=== PATIENT | male | born 1955 | race Caucasian/White ===

== ENCOUNTER 2016-12-17 16:38 | Inpatient (IN) | payer OTHER ==
[~2016-12-17] VITALS: Ht 180.3 cm; Wt 142.1 kg
[~2016-12-17 16:38] MED LIST: RIVA15T PO; XARELTO20 MG PO
--- NOTE | 2016-12-17 16:57 | NUR ---
PER PT DX WITH DVT TO RT THIGH AT [facility] JUST NOW ON 81 MG ASA FOR CURRENT DVT IN L LEG
--- NOTE | 2016-12-17 16:59 | NUR ---
LABS IN COMPUTER FROM THIS AM AT DR TODD OFFICE
--- NOTE | 2016-12-17 17:33 | ED GENERAL ADULT ---
History of Present Illness General Chief Complaint: General Adult Stated Complaint: "I JUST GOT A DVT" Source: patient Exam Limitations: no limitations Vital Signs & Intake/Output Vital Signs & Intake/Output Vital Signs Date Time Temp Pulse Resp B/P Pulse O2 O2 Flow FiO2 Ox Delivery Rate 12/17 1932 97.0 61 18 116/63 97 Room Air 12/17 1818 Room Air 12/17 1657 97.9 65 20 132/80 97 Allergies Coded Allergies: NO KNOWN ALLERGIES (07/26/11) Reconcile Medications Aspirin (Ecotrin*) 81 MG TABLET. 1 TAB PO DAILY HEART/BLOOD (Reported) Triage Note: [facility] MG [facility]SA FOR CURRENT DVT IN L LEG Triage Nurses Notes Reviewed? yes Onset: Gradual Duration: getting worse Timing: recent history Severity: moderate Severity Numbers: 5 HPI: Patient is a 61-year-old male with a past medical history of DVT currently on 81 mg of aspirin who presents emergency room stating that 9 days ago patient WENT ON A trip to [facility] and began having right lower extremity swelling and pain that has persisted much patient return today complaining of worsening pain and swelling and has had a nine-day history of associated symptoms of dyspnea on exertion. Patient denies any fever chills chest pain arm pain and jaw pain nausea vomiting or hemoptysis (KASIA PRICE) Past History Travel History Traveled to [place] past 21 day No Medical History Any Pertinent Medical History? 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 No (KASIA PRICE) Review of Systems Review of Systems Constitutional: Reports: no symptoms. EENTM: Reports: no symptoms. Respiratory: Reports: see HPI, short of breath. Cardiovascular: Reports: see HPI, peripheral edema. GI: Reports: no symptoms. Genitourinary: Reports: no symptoms. Musculoskeletal: Reports: no symptoms. Skin: Reports: no symptoms. Neurological/Psychological: Reports: no symptoms. Hematologic/Endocrine: Reports: no symptoms. Immunologic/Allergic: Reports: no symptoms. All Other Systems: Reviewed and Negative (KASIA PRICE) Physical Exam Physical Exam General Appearance: no apparent distress, alert, comfortable Rectal: heme negative stool Comments: Well-developed well-nourished person in no acute distress HEENT: Normal EENT exam, extraocular motion intact, no nystagmus. Pupils equally round and reactive to light and accommodation. Nose is atraumatic. External auditory canal and Tympanic membranes clear. Pharynx normal. No swelling or edema. Neck: Supple, no lymphadenopathy, normal range of motion without pain or tenderness Back: Nontender, no CVA tenderness. Cardiovascular: Regular rate and rhythms no murmurs rubs or gallops, normal JVP Respiratory: Chest nontender. No respiratory distress.breath sounds clear to auscultation bilaterally Abdomen: Soft, nontender nondistended, no appreciable organomegaly. Normal bowel sounds. No ascites Extremity: No edema, no calf tenderness to palpation, normal and equal pulses. Right lower extremity noted circumferential below the knee swelling and mild point tenderness, pedal pulses intact dermatomes intact Capillary refill less than 2 seconds Neuro: Alert oriented x3, motor sensory normal, Skin: No appreciable rash on exposed skin, skin is warm and dry. Psych: Mood and affect is normal, memory and judgment is normal. Core Measures ACS in differential dx? Yes CVA/TIA Diagnosis: No Severe Sepsis Present: No Septic Shock Present: No (KASIA PRICE) Progress Differential Diagnoses I considered the following diagnoses in my evaluation of the patient: [PE, DVT, myocardial infarction, coagulopathy, factor V, ] Plan of Care: Orders Procedure Date/time Status Regular Diet 12/18 B Active Patient Data 12/18 1943 Active Add-on Test (ER Only) 12/17 1937 Active EKG 12/17 1930 Active OXYGEN SETUP (GEN) 12/17 1929 Active Saline Lock 12/17 1929 Active Misc Message 12/17 1929 Active ED Holding Orders 12/17 1929 Active Admit to inpatient 12/17 1929 Active Vital Signs 12/17 1929 Active Activity/Ambulation 12/17 1929 Active Code Status 12/17 1929 Active Intake & Output 12/17 1817 Active CBC WITHOUT DIFFERENTIAL 04/03 1813 Complete TROPONIN LEVEL 12/18 1811 Complete PARTIAL THROMBOPLASTIN TIME 12/18 1811 Complete PROTHROMBIN TIME 12/18 1811 Complete Add-on Test (ER Only) 12/17 1756 Active Laboratory Tests 12/17/16 193: CBC w Diff Cancelled, WBC Cancelled, RBC Cancelled, Hgb Cancelled, Hct Cancelled , MCV Cancelled, MCH Cancelled, RDW Cancelled, Plt Count Cancelled, MPV Cancelled, PUBS MCHC Cancelled 12/17/161812: Troponin I < 0.01, PT 11.2, INR 1.07, APTT 34, CBC w Diff NO MAN DIFF REQ, RBC 4.46 L, MCV 87.6, MCH 28.6, RDW 13.6, MPV 7.6, Gran % 54.2, Lymphocytes % 33.8, Monocytes % 7.1, Eosinophils % 4.4, Basophils % 0.5, Absolute Granulocytes 4.1, Absolute Lymphocytes 2.5, Absolute Monocytes 0.5, Absolute Eosinophils 0.3, Absolute Basophils 0, PUBS MCHC 32.7 L Patient currently is in no apparent distress, clear lungs to auscultation No respiratory distress, patient has positive right lower extremity DVT and pulmonary embolism which heparin will be administered. (LUIZ BATUISTA,KASIA) Diagnostic Imaging: Viewed by Me: CT Scan, Ultrasound. Radiology Impression: acute abnormality Initial ED EKG: SINUS RHYTHM NOTED AT 61 BPM Comments: PATIENT: THANH ADAMS PRESENT AGE: 61 PATIENT ACCOUNT NO: [id number] : 57 LOCATION: [facility] ORDERING PHYSICIAN: KASIA BAUTISTA SERVICE DATE: 12/17/16 EXAM TYPE: CAT - CTA CHEST-PULMONARY EMBOLISM EXAMINATION: CT ANGIOGRAM OF THE CHEST WITH AND WITHOUT CONTRAST (CT PULMONARY ANGIOGRAM FOR PE) CLINICAL INFORMATION: Positive deep venous thrombosis to rule out pulmonary embolism. COMPARISON: Chest x-ray 12/04/2016. TECHNIQUE: Prior to contrast administration, noncontrast localization images were obtained. Subsequently, multidetector volumetric imaging was performed from the thoracic inlet to below the diaphragms following the administration of 95 mL Optiray 320 intravenous contrast. No contrast reaction reported. Sagittal, coronal, and MIP oblique sagittal reformatted images were obtained on the CT workstation, uploaded to PACS, and reviewed. FINDINGS: There is a nonocclusive filling defect within the right lower lobar pulmonary artery extending into multiple right lower lobe segmental pulmonary arteries, one of which appears occluded. There is an occlusive pulmonary embolus within a segmental left lower lobar pulmonary arterial branch. There is no focal consolidation, pleural effusion, or pneumothorax. There is a 6.5 mm nodule within the lingula on image 39 of series 3. This is not entirely included on previous abdominal CT studies. There is no CT correlate to the 7 mm nodular opacity within the right upper lung on the 12/04/2016 chest x-ray. The thoracic aorta is normal in caliber. Azygos vein prominent in size. The heart is normal in size without evidence of a pericardial effusion. There is no mediastinal, hilar, or axillary adenopathy. Variant exophytic protrusion of the right thyroid lobe into the right tracheoesophageal groove. The partially visualized upper abdomen is unremarkable. No acute osseous abnormalities. There is diffuse idiopathic skeletal hyperostosis throughout the thoracic spine. IMPRESSION: - There are a few occlusive pulmonary emboli within right and left lower lobe segmental pulmonary arterial branches. There is also a nonocclusive pulmonary embolus within the right lower lobar pulmonary artery extending into several segmental arterial branches. There is no evidence of right heart strain. - There is a 6.5 mm nodule within the lingula on image 39 of series 3. This is not entirely included on previous abdominal CT studies. There is no CT correlate to the 7 mm nodular opacity within the right upper lung on the 12/04/2016 chest x-ray. Various management parameters for solitary pulmonary nodules are in the literature. According to the Fleischner Society, recommendations for pulmonary nodules are as follows: Nodule size > 6-8 mm in LOW RISK PATIENTS: Initial follow up CT at 6-12 months, then at 18-24 months if no change. Nodule size > 6-8 mm in HIGH RISK PATIENTS: Initial follow up CT at 3-6 months, then 9-12 months and 24 months if no change. Critical findings discussed with Dr. Clark at 7:30 PM on 12/17/2016. PATIENT: THANH ADAMS PRESENT AGE: 61 PATIENT ACCOUNT NO: [id number] : 57 LOCATION: [facility] ORDERING PHYSICIAN: MADDI CHAPIN MD SERVICE DATE: 12/17/16 EXAM TYPE: US - US-UNILATERAL VENOUS DOPPLER EXAMINATION: US TRIPLEX LOWER EXTREMITY, RIGHT CLINICAL INFORMATION: Right lower extremity swelling and discomfort. Recent travel and history of DVT. Assess for new DVT. COMPARISON: No prior right-sided studies are available for comparison TECHNIQUE: Color-flow triplex imaging with spectral analysis and compression Doppler were performed on the right lower extremity. FINDINGS: There is absent flow and loss of compressibility of the right tibioperoneal trunk through the femoral veins, consistent with a deep vein thrombosis. Flow is demonstrated in the calf veins. There are no focal fluid collections. IMPRESSION: 1. Abnormal triplex scan demonstrating deep vein thrombosis in the right lower extremity. 2. There are no focal fluid collections. 3. This critical result was discussed with Felice Stoddard M.D. by telephone on 12/17/2016 4:12 PM and it was ascertained that the content and urgency of the report was understood at the time of direct communication. The findings were discussed with Nicolette Mak NP at 4:15 PM 12/17/2016. (KASIA PRICE) Departure Departure Disposition: STILL A PATIENT Condition: Critical Clinical Impression Primary Impression: Pulmonary embolism Secondary Impressions: DVT (deep venous thrombosis) Referrals: MADDI CHAPIN MD (PCP/Family) Departure Forms: Customer Survey General Discharge Information Admission Note Spoke With: CARMELITA HICKMAN MD Documentation of Exam: Documentation of any treatments & extenuating circumstances including Concerns Regarding Discharge (functional status, medication knowledge or non-compliance, living conditions, etc.) that warrant an admission rather than observation: [ Discussed patient with Dr. ESPITIA who agrees with telemetry admission for concerns of DVT and PE. Patient required IV anticoagulation, vascular consultation, repeat labs and telemetry monitoring, outpatient treatment at this time would be medically harmful] (KASIA PRICE) PA/BUYERS' AGENT Co-Sign Statement Statement: ED Attending supervision documentation- [X] I saw and evaluated the patient. I have also reviewed all the pertinent lab results and diagnostic results. I agree with the findings and the plan of care as documented in the PA's/BUYERS' AGENT's documentation. [X] I have reviewed the ED Record and agree with the PA's/BUYERS' AGENT's documentation. [] Additions or exceptions (if any) to the PAs/BUYERS' AGENT's note and plan are summarized below: [] (CARMELITA HICKMAN MD) Critical Care Note Critical Care Note Critical Care Time: 30-74 min (LUIZ BAUTISTA,KASIA)
--- NOTE | 2016-12-17 18:01 | NUR ---
PT IN ROOM 4. SEEN BY PROVIDER
--- NOTE | 2016-12-17 18:12 | NUR ---
PT STATES HE HAS HX OF DVT IN LEFT LEG FROM TWO YEARS AGO. NO LONGER ON BLOOD THINNERS FOR THIS. ABOUT TWO WEEKS AGO DEVELOPED RIGHT LEG PAIN. SINCE THEM PT WENT ON VACATION AND PAIN WORSENED. UPON RETURN FROM TRIP PT WENT TO SEE AND DIAGNOSED WITH DVT IN RIGHT LEG.
--- NOTE | 2016-12-17 18:14 | NUR ---
IV PLACED FOR CTA SCAN. PT PLACED ON MONITOR AND PULSE OX. HEART RATE 80, O2 SAT 99% ON ROOM AIR. PT REPORTS THAT HE HAS BEEN HAVING SOME SOB. PT TAKEN TO CT SCAN
--- NOTE | 2016-12-17 18:15 | NUR ---
LABS DRAWN AND SENT BY THIS [facility], SST,
[2016-12-17] MEDS ORDERED: ASPIRIN EC81 M1 PO (18:33)
[2016-12-17 18:58] LABS: PT 11.2 SEC (9.4-12.5); PTT 34 SEC (25-37)
--- NOTE | 2016-12-17 18:58 | NUR ---
RETURNED FROM CTA SCAN
--- NOTE | 2016-12-17 19:31 | NUR ---
RESTING QUIETLY, WATCHING TV. WITHOUT COMPLAINTS. REMAINS IN NSR ON MONITOR
--- NOTE | 2016-12-17 19:37 | CT SCAN REPORT ---
EXAMINATION: CT ANGIOGRAM OF THE CHEST WITH AND WITHOUT CONTRAST (CT PULMONARY ANGIOGRAM FOR PE) CLINICAL INFORMATION: Positive deep venous thrombosis to rule out pulmonary embolism. COMPARISON: Chest x-ray 12/04/2016. TECHNIQUE: Prior to contrast administration, noncontrast localization images were obtained. Subsequently, multidetector volumetric imaging was performed from the thoracic inlet to below the diaphragms following the administration of 95 mL Optiray 320 intravenous contrast. No contrast reaction reported. Sagittal, coronal, and MIP oblique sagittal reformatted images were obtained on the CT workstation, uploaded to PACS, and reviewed. FINDINGS: There is a nonocclusive filling defect within the right lower lobar pulmonary artery extending into multiple right lower lobe segmental pulmonary arteries, one of which appears occluded. There is an occlusive pulmonary embolus within a segmental left lower lobar pulmonary arterial branch. There is no focal consolidation, pleural effusion, or pneumothorax. There is a 6.5 mm nodule within the lingula on image 39 of series 3. This is not entirely included on previous abdominal CT studies. There is no CT correlate to the 7 mm nodular opacity within the right upper lung on the 12/04/2016 chest x-ray. The thoracic aorta is normal in caliber. Azygos vein prominent in size. The heart is normal in size without evidence of a pericardial effusion. There is no mediastinal, hilar, or axillary adenopathy. Variant exophytic protrusion of the right thyroid lobe into the right tracheoesophageal groove. The partially visualized upper abdomen is unremarkable. No acute osseous abnormalities. There is diffuse idiopathic skeletal hyperostosis throughout the thoracic spine. IMPRESSION: - There are a few occlusive pulmonary emboli within right and left lower lobe segmental pulmonary arterial branches. There is also a nonocclusive pulmonary embolus within the right lower lobar pulmonary artery extending into several segmental arterial branches. There is no evidence of right heart strain. - There is a 6.5 mm nodule within the lingula on image 39 of series 3. This is not entirely included on previous abdominal CT studies. There is no CT correlate to the 7 mm nodular opacity within the right upper lung on the 12/04/2016 chest x-ray. Various management parameters for solitary pulmonary nodules are in the literature. According to the Fleischner Society, recommendations for pulmonary nodules are as follows: Nodule size > 6-8 mm in LOW RISK PATIENTS: Initial follow up CT at 6-12 months, then at 18-24 months if no change. Nodule size > 6-8 mm in HIGH RISK PATIENTS: Initial follow up CT at 3-6 months, then 9-12 months and 24 months if no change. Critical findings discussed with Dr. Clark at 7:30 PM on 12/17/2016.
[2016-12-17 19:49] LABS: ABSOLUTE BASOPHIL COUNT 0 /CUMM (0.0-0.2); ABSOLUTE EOSINOPHIL COUNT 0.3 /CUMM (0.0-0.7); ABSOLUTE GRANULOCYTE CT 4.1 /CUMM (1.4-6.5); ABSOLUTE LYMPH COUNT 2.5 /CUMM (1.2-3.4); ABSOLUTE MONOCYTE COUNT 0.5 /CUMM (0.10-0.60); BASOPHIL % 0.5 % (0.0-2.0); EOSINOPHIL % 4.4 % (0-5); GRANULOCYTE % 54.2 % (42.2-75.2); HEMATOCRIT 39.1 % (42-52); MEAN CORPUSCULAR HGB 28.6 PG (27.0-31.0); MEAN CORPUSCULAR HGB CONC 32.7 G/DL (33.0-37.0); MEAN CORPUSCULAR VOLUME 87.6 FL (80.0-94.0); MEAN PLATELET VOLUME 7.6 FL (7.4-10.4); PLATELET COUNT 355 /CUMM (130-400); RBC DISTRIBUTION WIDTH 13.6 % (11.5-14.5); RED BLOOD CELL CT 4.46 /CUMM (4.70-6.10); WHITE BLOOD CELL COUNT 7.5 /CUMM (4.8-10.8)
--- NOTE | 2016-12-17 20:07 | NUR ---
HEPARIN DRIP STARTED AT 26ML/HR
--- NOTE | 2016-12-17 20:24 | History & Physical ---
JERMAIN WILDE,LES 12/17/162022: General Information and HPI MD Statement: I have seen and personally examined THANH ADAMS and documented this H&P. The patient is a 61 year old M who presented with a patient stated chief complaint of [right leg DVT]. Source of Information: patient Exam Limitations: no limitations History of Present Illness: Patient is a 61-year-old gentleman with PMH of HLD, left lower extremity DVT ( 2014), bladder tumor (1 year ago, s/p resection), osteoarthritis, left knee Rosales's cyst, umbilical hernia (5 years ago, S/P surgical repair), who came to the ED after having almost a week of right lower extremity pain and swelling. Patient reports that about a month ago he slipped and pulled a muscle and since then he has been having discomfort on the right lower leg, he did not follow up with any doctor. Since about a week ago his upper thigh has been painful which has been progressively worsening and is also having a feeling of tightness in the groin. Since a few days ago he has also noticed swelling in the right lower leg with tenderness and erythema. Patient went to see his PCP and a Doppler ultrasound was performed today which was reported positive for DVT in the right leg and he was sent to the ED. Patient denies shortness of breath, no chest pain, no palpitation, reports fatigue, reports having fevers and night sweats recently. denies poor appetite, reports a recent weight loss of about 5 pounds as he is trying to eat less and lose weight. However overall he has gained a lot of weight since he had a umbilical hernia 5 years ago, he states that he is trying to be active but it is not working and is planning for bariatric surgery. He also has a sedentary life style and sits behind the chair for at least 4-5 hours a day nonstop. He also had a recent travel to [facility] before onset of his symptoms a week ago. Patient denies dizziness, but reports an episode vertigo 5 weeks ago for which his PCP started him on meclizine. Patient also reports a recent episode of coughing and sneezing, he was diagnosed with pneumonia 2-3 weeks ago and received 2 courses of antibiotics Ceftin 500 mg twice a day. Patient's history is also significant for a bladder tumor that was removed in November 2015, patient was seen by Dr. Khan, pathology with results reported low-grade carcinoma. Patient did not require chemotherapy at that time. He also has done colonoscopy last year and has been reportedly negative Allergies/Medications Allergies: Coded Allergies: NO KNOWN ALLERGIES (07/26/11) Home Med list Apixaban (Eliquis) 5 MG TABLET 1 TAB PO BID clots Please take 2 tablets, in the am and in the evening for 1 week (12/18/2016 -12/24/2016) then take 1 tab in the AM & 1 tab in the evening until you see Dr. Negron. Atorvastatin Calcium 40 MG TABLET 1 TAB PO DAILY high lipids Oxycodone HCl/Acetaminophen (Percocet 5-325 MG Tablet) 5 MG-325 MG TABLET 2 TAB PO Q6P PRN PAIN SCALE 7-10 (SEVERE) Past History Travel History Traveled to [place] past 21 day No Medical History Neurological: NONE EENT: NONE Cardiovascular: NONE, hypercholesterolemia Respiratory: NONE Gastrointestinal: NONE Hepatic: NONE Renal: NONE Musculoskeletal: NONE Psychiatric: NONE Endocrine: NONE Blood Disorders: DVT Cancer(s): NONE TUBE PUSHER/Reproductive: NONE History of MRSA: No History of VRE: No History of CDIFF: No Surgical History Surgical History: she placed for abdominal hernia secondary to diastases rectus Past Family/Social History Family History Relations & Conditions if any MOTHER *No pertinent family history FATHER FHx: alcoholism Psychosocial History Services at Home: None Smoking Status: Never Smoked ETOH Use: occasional use Illicit Drug Use: denies illicit drug use Functional Ability ADLs Independent: dressing, eating, toileting, bathing. Ambulation: independent Review of Systems Review of Systems Constitutional: Denies: chills, fever, weakness. EENTM: Reports: no symptoms. Cardiovascular: Denies: chest pain, palpitations, peripheral edema. Respiratory: Denies: cough, sputum production. GI: Denies: abdominal pain, changes in stool. Genitourinary: Reports: no symptoms. Musculoskeletal: Reports: no symptoms. Skin: Reports: no symptoms. Neurological/Psychological: Reports: no symptoms. Hematologic/Endocrine: Reports: no symptoms. Immunologic/Allergic: Reports: no symptoms. Exam & Diagnostic Data Last 24 Hrs of Vital Signs/I&O Vital Signs Date Time Temp Pulse Resp B/P Pulse O2 O2 Flow FiO2 Ox Delivery Rate 12/17 1932 97.0 61 18 116/63 97 Room Air 04/03 1818 Room Air 12/17 1657 97.9 65 20 132/80 97 Physical Exam General Appearance Alert, Oriented X3, Cooperative, No Acute Distress Skin No Significant Lesion HEENT Atraumatic, EOMI Neck Supple, No JVD Cardiovascular Regular Rate, Normal S1, Normal S2, No Murmurs Lungs Clear to Auscultation, Normal Air Movement Abdomen Soft, No Tenderness Neurological Normal Speech, Strength at 5/5 X4 Ext, Normal Tone, Cranial Nerves 3-12 NL Extremities Normal Pulses, there is tenderness and erythema on the right lower [place]. The right leg appears slightly swollen compared to the left leg. Vascular Pulses Symmetrical Last 24 Hrs of Labs/Tarun: Laboratory Tests 12/17/161930: CBC w Diff Cancelled, WBC Cancelled, RBC Cancelled, Hgb Cancelled, Hct Cancelled , MCV Cancelled, MCH Cancelled, RDW Cancelled, Plt Count Cancelled, MPV Cancelled, PUBS MCHC Cancelled 12/17/161812: Troponin I < 0.01, PT 11.2, INR 1.07, APTT 34, CBC w Diff NO MAN DIFF REQ, RBC 4.46 L, MCV 87.6, MCH 28.6, RDW 13.6, MPV 7.6, Gran % 54.2, Lymphocytes % 33.8, Monocytes % 7.1, Eosinophils % 4.4, Basophils % 0.5, Absolute Granulocytes 4.1, Absolute Lymphocytes 2.5, Absolute Monocytes 0.5, Absolute Eosinophils 0.3, Absolute Basophils 0, PUBS MCHC 32.7 L Diagnostic Data CXR Results SERVICE DATE: 12/17/16 EXAM TYPE: CAT - CTA CHEST-PULMONARY EMBOLISM EXAMINATION: CT ANGIOGRAM OF THE CHEST WITH AND WITHOUT CONTRAST (CT PULMONARY ANGIOGRAM FOR PE) CLINICAL INFORMATION: Positive deep venous thrombosis to rule out pulmonary embolism. COMPARISON: Chest x-ray 12/04/2016. TECHNIQUE: Prior to contrast administration, noncontrast localization images were obtained. Subsequently, multidetector volumetric imaging was performed from the thoracic inlet to below the diaphragms following the administration of 95 mL Optiray 320 intravenous contrast. No contrast reaction reported. Sagittal, coronal, and MIP oblique sagittal reformatted images were obtained on the CT workstation, uploaded to PACS, and reviewed. FINDINGS: There is a nonocclusive filling defect within the right lower lobar pulmonary artery extending into multiple right lower lobe segmental pulmonary arteries, one of which appears occluded. There is an occlusive pulmonary embolus within a segmental left lower lobar pulmonary arterial branch. There is no focal consolidation, pleural effusion, or pneumothorax. There is a 6.5 mm nodule within the lingula on image 39 of series 3. This is not entirely included on previous abdominal CT studies. There is no CT correlate to the 7 mm nodular opacity within the right upper lung on the 12/04/2016 chest x-ray. The thoracic aorta is normal in caliber. Azygos vein prominent in size. The heart is normal in size without evidence of a pericardial effusion. There is no mediastinal, hilar, or axillary adenopathy. Variant exophytic protrusion of the right thyroid lobe into the right tracheoesophageal groove. The partially visualized upper abdomen is unremarkable. No acute osseous abnormalities. There is diffuse idiopathic skeletal hyperostosis throughout the thoracic spine. IMPRESSION: - There are a few occlusive pulmonary emboli within right and left lower lobe segmental pulmonary arterial branches. There is also a nonocclusive pulmonary embolus within the right lower lobar pulmonary artery extending into several segmental arterial branches. There is no evidence of right heart strain. - There is a 6.5 mm nodule within the lingula on image 39 of series 3. This is not entirely included on previous abdominal CT studies. There is no CT correlate to the 7 mm nodular opacity within the right upper lung on the 12/04/2016 chest x-ray. Various management parameters for solitary pulmonary nodules are in the literature. According to the Fleischner Society, recommendations for pulmonary nodules are as follows: Nodule size > 6-8 mm in LOW RISK PATIENTS: Initial follow up CT at 6-12 months, then at 18-24 months if no change. Nodule size > 6-8 mm in HIGH RISK PATIENTS: Initial follow up CT at 3-6 months, then 9-12 months and 24 months if no change. Critical findings discussed with Dr. Clark at 7:30 PM on 12/17/2016. DICTATED BY: CARLA OLMEDO MD DATE/TIME DICTATED:12/17/161918 IS ANALYST:PADMA DATE/TIME TRANSCRIBED:12/17/161918 SERVICE DATE: 12/18/16- EXAM TYPE: US - US-UNILATERAL VENOUS DOPPLER EXAMINATION: US TRIPLEX LOWER EXTREMITY, LEFT CLINICAL INFORMATION: History of DVT on the left, now also on the right. Patient has pulmonary emboli. COMPARISON: Right leg DVT study 12/17/2016 and left leg study dated 06/07/2015. TECHNIQUE: Color-flow triplex imaging with spectral analysis and compression Doppler were performed on the left lower extremity. FINDINGS: There is occlusive thrombus present in the left popliteal vein with nonocclusive thrombus present in the femoral vein above this up to its midportion. Thrombus is also present in the peroneal vein. It should be noted at the time of the patient's 2014 study mentioned above, noncompressible occlusive thrombus was present in the popliteal vein extending up into the femoral vein. Once again seen is a Rosales's cyst measuring 6.7 x 1.7 x 4.2 cm. IMPRESSION: Evidence of occlusive DVT in the popliteal vein. Similar appearances were present at the time of the prior study. The thrombus in the femoral vein is no longer occlusive. Given the appearances previously, it is difficult to ascertain whether these findings are chronic or acute as there are no studies which show resolution of the previously demonstrated 2014 findings. This critical result was discussed with Dr. Stephen Addison at 10:15 a.m. immediately after the exam and it was ascertained that the content and urgency of the report was understood at the time of direct communication. DICTATED BY: KASSANDRA GARRIDO MD DATE/TIME DICTATED:12/18/161020 IS ANALYST:PADMA DATE/TIME TRANSCRIBED:12/18/161020 Assessment/Plan Assessment: Patient is a 61-year-old gentleman with PMH of HLD, left lower extremity DVT ( 2014), bladder tumor (1 year ago, s/p resection), osteoarthritis, left knee Rosales's cyst, umbilical hernia (5 years ago, S/P surgical repair), came to the ED due to right leg pain and swelling and a Doppler ultrasound that showed DVT. Workup in the ED also has revealed PE and he is a started on IV heparin. Patient is admitted to telemetry floor for closer monitoring. Problem list and plan: Right leg DVT and PE Denies shortness of breath, chest pain or palpitations. EKG unremarkable, troponin negative. Patient has a history of DVT diagnosed in April 2015, follows up with vascular surgery, etiology of the DVT as he says was unknown. He was on warfarin for 6 months and was switched to aspirin by Dr. Lehman afterwards. Patient has sedantary life style, has obesity, recent travel by [facility] and thus immobility for long hours, also significant history of bladder cancer, removed by Dr. 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 * Vital signs every shift * Repeat troponin and EKG * Continue IV heparin, can be switched to Eliquis or Xarelto in am * O2 supplementation as needed * Hematology consult in a.m. * Vascular surgery consult in a.m. * Echocardiogram * CBC in am Hisotory of TCC of the bladder In November 2015. 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 Denies any urinary symptoms * Urology followup outaptient for possible need for cystoscopy Lung nodule Accidental finding in chest CT: 6.5 mm nodule within the lingula on image 39 of series 3. This is not entirely included on previous abdominal CT studies. There is no CT correlate to the 7 mm nodular opacity within the right upper lung on the 12/04/2016 chest x-ray. Denies smoking. * patient should follow up with pulmonary outpatient HLD Currently not on medication. Has stopped Lipitor due to side effects. * Lipid panel Heart healthy diet Mild pain pathways Full code As Ranked By This Provider Problem List: 1. Pulmonary embolism 2. Deep vein thrombosis (DVT) 3. Bladder tumor 4. Umbilical hernia Core Measures/Miscellaneous Acute Coronary Syndrome ACS Diagnosis: No Cerebrovascular Accident CVA/TIA Diagnosis: No Congestive Heart Failure CHF Diagnosis: No Venous Thromboembolism VTE Risk Factors: Acute medical illness, Age > 40, Cancer/chemo/oth therapy, Obesity, Previous VTE No [facility] VTE prophylaxis d/t: No contraindications No VTE Pharm Prophylaxis d/t: No contraindications VTE Diagnosis: Yes VTE Type: Deep Venous Thrombosis (also has PE) VTE Confirmed by (Test): DUPLEX SCAN LOWER EXT (as well as CTA) Severe Sepsis Severe Sepsis Present: No Septic Shock Septic Shock Present: No Miscellaneous Documentation Attending Case Discussed With: CYRIL ESPITIA MDEmelina Primary Care Physician: MADDI CHAPIN MD Patient sees these Specialists Dr. Lehman Level of Patient Care: Telemetry LANRE SHIPLEY 12/17/16 2329: Exam & Diagnostic Data Diagnostic Data Other Results EXAM TYPE: CAT - CTA CHEST-PULMONARY EMBOLISM IMPRESSION: - There are a few occlusive pulmonary emboli within right and left lower lobe segmental pulmonary arterial branches. There is also a nonocclusive pulmonary embolus within the right lower lobar pulmonary artery extending into several segmental arterial branches. There is no evidence of right heart strain. - There is a 6.5 mm nodule within the lingula on image 39 of series 3. This is not entirely included on previous abdominal CT studies. There is no CT correlate to the 7 mm nodular opacity within the right upper lung on the 12/04/2016 chest x-ray. Various management parameters for solitary pulmonary nodules are in the literature. According to the Fleischner Society, recommendations for pulmonary nodules are as follows: Resident Review Statement Resident Statement: examined this patient, discussed with administration intern, agreed with administration intern, reviewed EMR data (avail), reviewed images, amended to note Other Findings: This is 61-year-old man the past medical history of hyperlipidemia not in current medication, history of lower extremity DVT that was on the left side 2014, patient has history of bladder tumor(urethral carcinoma, low-grade) that was resected one year ago, Osteoarthritis, left knee Rosales's cyst. Presented to the emergency department after been referred by his primary care doctor due to positive Doppler ultrasound study of the right lower extremity showing a new DVT. The study was done due to the patient Complaining of worsening pain and swelling on his right lower extremity with recent history of travel 1 week ago. Patient reported that he was taken off the warfarin after treatment for a total of 6 month his vascular surgeon and he was placed on baby aspirin. also he reports an episode vertigo 5 weeks ago for that was treated with meclizine by his PCP. Patient also reports a recent diagnosed with pneumonia 2-3 weeks ago and received 2 courses of antibiotics Ceftin 500 mg twice a day. Patient denies shortness of breath, no chest pain, no palpitation, reports being fatigued. Physical examination, lab and imaging as above. Assessment: -Bilateral pulmonary embolism/New right lower extremity DVT: Giving the patient previous history of DVT, and the recent travel history and the history of the bladder cancer. Despite that the patient would need to workup for any underlying coagulopathy. Patient will need to be on chronic anticoagulation and he will need further workup for any underlying cardiac strain. -Lung nodules: Patient will need outpatient workup for the lung nodule. The lung nodule was seen on chest x-ray that was done by the patient primary care doctor on November 2016, he would need to follow-up with his PCP regarding this. Plan: -Admit patient to telemetry floor -Vitals every shift, I and O's -Continue the patient on heparin drip -Guaiac all stools -Patient will need to be placed on anticoagulation -Echocardiogram, 1 set of troponin and EKG -Doppler ultrasound for the left lower extremity for assessment -Vascular consultation in a.m -Hematology consultation in a.m -Heart healthy diet -Pain pathway -DVT prophylaxis on heparin drip -Full code OMKAR WILDE, [facility] 12/18/16 0448: Attending MD Review Statement Attending Statement Attending MD Statement: examined this patient, discuss w/resident/PA/TENT FINISHER, agreed w/resident/PA/TENT FINISHER, discussed with family Attending Assessment/Plan: 61 yo morbidly obese M with h/o HLD, OA, left LE DVT (2014) was on xarelto, now on aspirin with regular follow up with Dr. Lehman, is now here with right lower extremity DVT and multiple segmental PE. He c/o occasional lightheadedness and more recently exertional dyspnea over the past 1 week. 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 Since his umbilical hernia surgery 4 yrs ago and knee OA he has been less active causing him to gain weight. About 5 weeks ago, he developed right groin pain after a long walk, which got progressively worse to the point that he could not walk with associated swelling of the right leg. He saw Dr. Chapin today who advised RLE doppler which came back positive for DVT. He reports recent travel to [place] (4-5 hour flight), he returned 1 day prior. Of note, he has a h/o transitional cell CA of bladder s/p TURBT (2015 ) not requiring chemotherapy. Last colonoscopy (2015): rectal hyperplastic polyp. His previous DVT was attributed to sedentary lifestyle, he did not see a forging roll operator for underlying coagulopathy. Family h/o maternal grandfather with colon cancer. No h/o clotting disorders. VSS. Labs: trop neg. CTA: few occlusive PE within right and left lower lobe segmental pulmonary artery branches, nonocclusive PE within right lower lobar artery, no right heart strain. Lung nodule+. Doppler: right tibioperoneal trunk to femoral vein DVT. EKG: SR. 1. Recurrent DVT (now in RLE) and bilateral segmental PE. Tele admit, serial EKG and troponin to rule out ACS, obtain Echo to assess for right heart strain, guaiac all stools, initiate IV heparin with a plan to transition to eliquis in AM. He has multiple risk factors and will need chronic anticoagulation. Obtain hematology and vascular consult. Obtain LLE doppler to assess previous DVT burden. 2. Lung nodule. Outpatient Pulm follow up. 3. Morbidly obese. He is being worked up for Bariatric surgery. DVT ppx IV heparin. Full code.
--- NOTE | 2016-12-17 21:13 | NUR ---
PT TO GO TO ROOM 171-1
--- NOTE | 2016-12-17 21:21 | NUR ---
REPORT CALLED TO SAMUEL ON TELE UNIT
--- NOTE | 2016-12-17 21:31 | Admission Certification ---
Admission Certification Certification Statement - As attending physician, I certify that at the time of - admission, based on clinical presentation, severity of - symptoms, need for further diagnostic testing and - therapeutic interventions, and risk of adverse outcomes - without in-hospital treatment, in my clinical assessment, - this patient requires an acute hospital stay for a minimum - of two nights or longer. I have also considered psychsocial - factors such as support system, advanced age, financial - issues, cognitive issues, and failed out-patient treatments, - past re-admission history, safety of patient, and lack of - compliance as applicable. Specific rationale supporting this admission is: Recurrent DVT with multiple segmental PE requiring inpatient admission for anticoagulation, Vascular and Hematology consultation.
[2016-12-17 23:31] VITALS: BP 130/70
[2016-12-18 02:21] LABS: PTT 47 SEC (25-37)
--- NOTE | 2016-12-18 07:27 | Cons- Hematology ---
General Information and HPI Consulting Request Date of Consult: 12/18/16 Requested By: OMKAR WILDE,DOMENICO History of Present Illness: 61-year-old gentleman now admitted with right DVT and pulmonary emboli. The patient several weeks ago "fell on the ice"subsequent increasing pain in the right leg. The pain intensified and the patient had questionable shortness of breath and sought medical attention. Currently he has no significant shortness of breath cough chest pain or hemoptysis. 2 years ago patient had what appeared to be a non-provoked DVT of the left lower extremity. He was placed on anticoagulation, warfarin, for 6 months. Patient also has a history of bladder cancer status post cystoscopic resection. Patient last saw his urologist 6 months ago.. Family history is negative for thrombophilia and it should be noted the patient did take a plane trip in the recent timeframe Allergies/Medications Allergies: Coded Allergies: NO KNOWN ALLERGIES (07/26/11) Home Med List: Aspirin (Ecotrin*) 81 MG TABLET.DR 1 TAB PO DAILY HEART/BLOOD (Reported) Current Medications: Current Medications Sig/Joce Start time Last Medication Dose Route Stop Time Status Admin Acetaminophen 500 MG Q6P PRN 12/17 2144 AC PO Heparin Sodium 5,701 UNIT BOLUS ONE 12/18 244 DC 12/18 (Porcine) IV 12/18 Heparin Sodium 0 .STK-MED ONE 12/17 1954 DC (Porcine) .ROUTE Heparin Sodium 5,000 UNIT ONCE ONE 12/17 1944 DC 12/17 (Porcine) IV 12/17 Heparin Sodium 25,000 UNIT Q24H 12/17 1944 AC 12/17 (Porcine) IV 2005 Sodium Chloride 500 ML Ibuprofen 600 MG Q6P PRN 12/17 2144 AC PO Oxycodone/ 2 TAB Q6P PRN 12/17 214 AC Acetaminophen PO Review of Systems Review of Systems: Patient denies significant headaches or his recently treated for vertigo is now resolved. Agent denies nausea vomiting diarrhea or GI blood loss. Patient denies dysuria or hematuria. She denies bone aches or focal neurologic deficit. 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 Home Services at Home: None Smoking Status: Never Smoked ETOH Use: occasional use Illicit Drug Use: denies illicit drug use Functional Ability ADLs Independent: dressing, eating, toileting, bathing. Ambulation: independent Exam & Diagnostic Data Vital Signs and I&O Vital Signs Date Time Temp Pulse Resp B/P Pulse O2 O2 Flow FiO2 Ox Delivery Rate 12/18 0000 Room Air 12/17 2331 98.2 62 18 130/70 96 Room Air 12/17 1932 97.0 61 18 116/63 97 Room Air 12/17 1818 Room Air 12/17 1657 97.9 65 20 132/80 97 Intake & Output 12/18 0800 12/18 0000 12/17 1600 Intake Total 303.6 52 Output Total Balance 303.6 52 Intake, IV 253.6 52 Intake, Oral 50 Patient 313 lb Weight Gen.: in NAD ENT: Sclera anicteric Chest: Normal respiratory effort, decreased breath sounds Cor: RRR, no extra sounds Abdomen: Soft, bowel sounds present, no tenderness, no rebound Extremities: Without clubbing, cyanosis, right lower extremity edematous Neurology: Alert and oriented 3, no gross deficit Skin: No rashes Last 48 Hours of Lab Results: Laboratory Tests 12/18 12/18 12/18 12/17 0600 0200 0100 1931 Chemistry Sodium Pending Potassium Pending Chloride Pending Carbon Dioxide Pending Anion Gap Pending BUN Pending Creatinine Pending BUN/Creatinine Ratio Pending Troponin I (<0.11 ng/ml) < 0.01 Coagulation APTT (25 - 37 SEC) 47 H Hematology CBC w Diff Cancelled WBC Cancelled RBC Cancelled Hgb Cancelled Hct Cancelled MCV Cancelled MCH Cancelled RDW Cancelled Plt Count Cancelled MPV Cancelled PUBS MCHC Cancelled 12/17 1812 Chemistry Troponin I (<0.11 ng/ml) < 0.01 Coagulation PT (9.4 - 12.5 SEC) 11.2 INR (0.90 - 1.17) 1.07 APTT (25 - 37 SEC) 34 Hematology CBC w Diff NO MAN DIFF REQ WBC (4.8 - 10.8 /CUMM) 7.5 RBC (4.70 - 6.10 /CUMM) 4.46 L Hgb (14.0 - 18.0 G/DL) 12.8 L Hct (42 - 52 %) 39.1 L MCV (80.0 - 94.0 FL) 87.6 MCH (27.0 - 31.0 PG) 28.6 RDW (11.5 - 14.5 %) 13.6 Plt Count (130 - 400 /CUMM) 355 MPV (7.4 - 10.4 FL) 7.6 Gran % (42.2 - 75.2 %) 54.2 Lymphocytes % (20.5 - 51.1 %) 33.8 Monocytes % (1.7 - 9.3 %) 7.1 Eosinophils % (0 - 5 %) 4.4 Basophils % (0.0 - 2.0 %) 0.5 Absolute Granulocytes (1.4 - 6.5 /CUMM) 4.1 Absolute Lymphocytes (1.2 - 3.4 /CUMM) 2.5 Absolute Monocytes (0.10 - 0.60 /CUMM) 0.5 Absolute Eosinophils (0.0 - 0.7 /CUMM) 0.3 Absolute Basophils (0.0 - 0.2 /CUMM) 0 PUBS MCHC (33.0 - 37.0 G/DL) 32.7 L Imaging/Other Studies: VTY-unaov-halramfmm emboli Right lower extremity Doppler-DVT Left lower extremity Doppler= ordered Assessment/Plan Assessment: Recurrent DVT(contralateral leg) and pulmonary embolism. The patient has been on a airline flight and suffered trauma to the affected limb. Of concern is his prior history of bladder cancer. Also of importance is the lack of familial tendency of thromboembolism. At this point it is unclear as to the etiology of his current thromboembolic phenomena.. Recommend 1. IV heparin was can version to a newer oral anticoagulant 2. In view of the prior bladder cancer, CAT scan abdomen and pelvis/chest x-ray 3. Assuming the patient is not going to be placed on warfarin, laboratory testing for thrombophilia can be accomplished as an outpatient. 4. Vascular surgery to see patient I have discussed this in full with the patient Recommendations: .. Consult Acknowledgment - Thank you for your consult request.
[2016-12-18 08:00] VITALS: BP 132/60
--- NOTE | 2016-12-18 08:23 | PN- Housestaff ---
Subjective Follow-up For: DVT/pulmonary embolus Complaints: pain and swelling in right lower limb, dry cough Tele-Events Since Last Visit: Normal sinus rhythm, heart rate between 59-69, no any overnight event Subjective: Patient is seen and examined at the bedside. He was complaining of swelling and tenderness on the right lower leg. He was also complaining of dry cough, but she is having since last 1 month and was treated for that by tablet Ceftin for around 10 days Review of Systems Constitutional: Denies: fever, malaise, weakness. Cardiovascular: Reports: edema, peripheral edema. Denies: chest pain, orthopena, palpitations. Respiratory: Reports: cough. Denies: hemoptysis, orthopnea, short of breath, sputum production, stridor, wheezing. Gastrointestinal: Denies: abdominal pain, bloating, constipation, diarrhea. Genitourinary: Denies: no symptoms. Skin: Reports: change in skin color, erythema. Neurological/Psychological: Denies: anxiety. Objective Last 24 Hrs of Vital Signs/I&O Vital Signs Date Time Temp Pulse Resp B/P Pulse O2 O2 Flow FiO2 Ox Delivery Rate 12/18 0800 98.0 62 20 132/60 97 Room Air 12/18 0000 Room Air 12/17 2331 98.2 62 18 130/70 96 Room Air 12/17 1932 97.0 61 18 116/63 97 Room Air 12/17 1818 Room Air 12/17 1657 97.9 65 20 132/80 97 Intake & Output 12/18 1600 12/18 0800 12/18 0000 Intake Total 303.6 52 Output Total Balance 303.6 52 Intake, IV 253.6 52 Intake, Oral 50 Patient 142.145 kg Weight Physical Exam General Appearance: Alert, Oriented X3, Cooperative, No Acute Distress Skin: there is redness, erythema and tenderness of right lower extremity extending from ankle joint to the knee. Cardiovascular: Normal S1, Normal S2, No Murmurs Lungs: Clear to Auscultation, decreased air entry on right lower lobe of the lung Abdomen: Soft, No Tenderness, distended Neurological: Normal Speech Extremities: No Clubbing, No Cyanosis, right lower extremity edema, erythema, tenderness extending from the ankle to the knee joint Vascular: Normal Pulses, Pulses Symmetrical Current Medications: Current Medications Sig/Joce Start time Last Medication Dose Route Stop Time Status Admin Acetaminophen 500 MG Q6P PRN 12/17 2144 AC PO Apixaban 10 MG BID 12/18 1000 DC PO 12/24 2201 Heparin Sodium 25,000 UNIT Q24H 12/18 1115 AC (Porcine) IV Sodium Chloride 500 ML Heparin Sodium 5,701 UNIT BOLUS ONE 12/18 1100 CAN (Porcine) IV 12/18 1101 Heparin Sodium 5,701 UNIT BOLUS ONE 12/18 0245 DC 12/18 (Porcine) IV 12/18 024 0245 Heparin Sodium 0 .STK-MED ONE 12/17 1954 DC (Porcine) .ROUTE Heparin Sodium 5,000 UNIT ONCE ONE 12/17 1944 DC 12/17 (Porcine) IV 12/17 Heparin Sodium 25,000 UNIT Q24H 12/17 1944 DC 12/17 (Porcine) IV 2005 Sodium Chloride 500 ML Ibuprofen 600 MG Q6P PRN 12/17 2144 DC PO Oxycodone/ 2 TAB Q6P PRN 12/17 2144 AC Acetaminophen PO Last 24 Hrs of Lab/Tarun Results Last 24 Hrs of Labs/Mics: Laboratory Tests 12/18/16 0915: APTT 55 H 12/18/16 0822: CBC w Diff NO MAN DIFF REQ, RBC 4.37 L, MCV 87.4, MCH 29.3, RDW 13.0, MPV 7.7, Gran % 59.9, Lymphocytes % 30.6, Monocytes % 5.1, Eosinophils % 3.7, Basophils % 0.7, Absolute Granulocytes 4.2, Absolute Lymphocytes 2.2, Absolute Monocytes 0.4 , Absolute Eosinophils 0.3, Absolute Basophils 0, PUBS MCHC 33.5 12/18/16 0600: Anion Gap 7, Estimated GFR > 60, BUN/Creatinine Ratio 16.7 12/18/16 0530: Urine Color STRAW, Urine Clarity CLEAR, Urine pH 6.5, Ur Specific [place] 1.010, Urine Protein NEG, Urine Ketones NEG, Urine Nitrite NEG, Urine Bilirubin NEG, Urine Urobilinogen 0.2, Ur Leukocyte Esterase NEG, Ur Microscopic EXAM NOT REQUIRED, Urine Hemoglobin NEG, Urine Glucose NEG 12/18/16 0200: APTT 47 H 12/18/16 0100: Troponin I < 0.01 12/17/16 1931: CBC w Diff Cancelled, WBC Cancelled, RBC Cancelled, Hgb Cancelled, Hct Cancelled , MCV Cancelled, MCH Cancelled, RDW Cancelled, Plt Count Cancelled, MPV Cancelled, PUBS MCHC Cancelled 12/17/163: Troponin I < 0.01, PT 11.2, INR 1.07, APTT 34, CBC w Diff NO MAN DIFF REQ, RBC 4.46 L, MCV 87.6, MCH 28.6, RDW 13.6, MPV 7.6, Gran % 54.2, Lymphocytes % 33.8, Monocytes % 7.1, Eosinophils % 4.4, Basophils % 0.5, Absolute Granulocytes 4.1, Absolute Lymphocytes 2.5, Absolute Monocytes 0.5, Absolute Eosinophils 0.3, Absolute Basophils 0, PUBS MCHC 32.7 L Assessment/Plan Assessment: Patient is a 61-year-old gentleman with PMH of HLD, left lower extremity DVT ( 2014), bladder tumor (1 year ago, s/p resection), osteoarthritis, left knee Rosales's cyst, umbilical hernia (5 years ago, S/P surgical repair), who came to the ED after having almost a week of right lower extremity pain and swelling. Plan - Right lower extremity DVT, bilateral pulmonary embolus with history of left lower extremity DVT and bladder cancer * Patient having history of DVT in 2014 and was treated by warfarin for 6 months followed by aspirin by Dr. Maxwell. * His risk factors are obesity, immobilization, recent long flight, history of bladder cancer, * We started him on heparin drip * We took consult from Dr. Maxwell, he told that if the patient have involvement of femoral artery, then patient may need thrombolysis. Otherwise, he can be treated with Eliquis as an outpatient. We discussed about the patient in evening and he advised that he can go home on Eliquis as he is not having any involvement of femoral artery. * Discussed with Dr. Mckinney, over the phone, patient can be evaluated as an outpatient for further workup for thrombophilia Hyperlipidemia - * Cholesterol 219, LDL 156, on 11/17/2016 * Started patient on tablet atorvastatin 40 mgs OD, HS * We advised him for low-fat diet along with weight loss exercise after he Improved Diet -heart healthy diet DVT prophylaxis-Eliquis CODE STATUS full code Problem List: 1. Deep vein thrombosis (DVT) 2. Pulmonary embolism 3. Bladder tumor 4. Umbilical hernia Pain Ratin Pain Location: Bilateral lower extremity Pain Goal: Remain pain free Pain Plan: [id number] avoid NSAIDs Tomorrow's Labs & Rationales: Not required as patient is going home DVT/Prophylaxis: pharmacological
[2016-12-18 09:22] LABS: ABSOLUTE BASOPHIL COUNT 0 /CUMM (0.0-0.2); ABSOLUTE EOSINOPHIL COUNT 0.3 /CUMM (0.0-0.7); ABSOLUTE GRANULOCYTE CT 4.2 /CUMM (1.4-6.5); ABSOLUTE LYMPH COUNT 2.2 /CUMM (1.2-3.4); ABSOLUTE MONOCYTE COUNT 0.4 /CUMM (0.10-0.60); BASOPHIL % 0.7 % (0.0-2.0); EOSINOPHIL % 3.7 % (0-5); GRANULOCYTE % 59.9 % (42.2-75.2); HEMATOCRIT 38.2 % (42-52); MEAN CORPUSCULAR HGB 29.3 PG (27.0-31.0); MEAN CORPUSCULAR HGB CONC 33.5 G/DL (33.0-37.0); MEAN CORPUSCULAR VOLUME 87.4 FL (80.0-94.0); MEAN PLATELET VOLUME 7.7 FL (7.4-10.4); PLATELET COUNT 305 /CUMM (130-400); RED BLOOD CELL CT 4.37 /CUMM (4.70-6.10); WHITE BLOOD CELL COUNT 7.1 /CUMM (4.8-10.8)
[2016-12-18] MEDS ORDERED: PERCOCET 5-3251 EACH PO (10:11)
[2016-12-18] MEDS ORDERED: ELIQUIS5 M1 PO ×5 (10:11→16:15)
[2016-12-18 10:12] LABS: PTT 55 SEC (25-37)
[2016-12-18] MEDS ORDERED: ATORVASTATIN CA40 M1 PO (10:13)
--- NOTE | 2016-12-18 10:56 | NUR ---
PATIENT HAS SCHEDULE CAT SCAN OF ABD AND PELVIS AT 12OO AND IS NPO FOR TEST. THE SCAN HAS BEEN RESCHEDULE FOR 1800 TODAY. I SPOKE TO FORTUNATO FROM CAT SCAN WHO SAID PATIENT CAN HAVE LUNCH AND NPO FOR DINNER. PATIENT IS AWARE. DINNER TRAY WILL BE HELD UNTIL AFTER CAT SCAN COMPLETED AND RESULTED.
--- NOTE | 2016-12-18 10:57 | Patient Discharge Instructions ---
Discharge Instructions General Discharge Information You were seen/treated for: Deep vein thrombosis and pulmonary embolus Special Instructions: Please follow-up with Dr. Maxwell within a week of discharge Please follow-up with Dr. Mckinney for further evaluation of etiology of the clot. Please continue Eliquis as advised. Diet Continue normal diet: No Recommended Diet: Heart Healthy Activity Full Activity/No Limits: No (as tolerated) Acute Coronary Syndrome Inclusion Criteria At DC or during hospital stay patient has or had the following: ACS DIAGNOSIS No Discharge Core Measures Meds if any: Prescribed or Continued at Discharge Meds if any: NOT Prescribed or Continued at Discharge Congestive Heart Failure Inclusion Criteria At DC or during hospital stay patient has or had the following: CHF DIAGNOSIS No Discharge Core Measures Meds if any: Prescribed or Continued at Discharge Meds if any: NOT Prescribed or Continued at Discharge Cerebrovascular accident Inclusion Criteria At DC or during hospital stay patient has or had the following: CVA/TIA Diagnosis No Discharge Core Measures Meds if any: Prescribed or Continued at Discharge Meds if any: NOT Prescribed or Continued at Discharge Venous thromboembolism Inclusion Criteria VTE Diagnosis Yes VTE Type Pulmonary Embolism VTE Confirmed by (Test) CT CHEST ANGIOGRAM Discharge Core Measures - Per Current guidelines, there needs to be overlap - treatment for the first 5 days of Warfarin therapy. - If discharged on Warfarin prior to 5 days of - overlap therapy, the patient will need to be - assessed for post discharge needs including - *Post discharge parental anticoagulation - *Warfarin and/or parental anticoagulation education - *Follow up date to check INR post discharge At least 5 days overlap therapy as Inpatient No Why was Parental Med stopped Other Anticoagulant given Meds if any: Prescribed or Continued at Discharge Warfarin No Note: Overlap Therapy is Warfarin and Anticoagulant Meds if any: NOT Prescribed or Continued at Discharge
--- NOTE | 2016-12-18 12:15 | ULTRASOUND REPORT ---
EXAMINATION: US TRIPLEX LOWER EXTREMITY, LEFT CLINICAL INFORMATION: History of DVT on the left, now also on the right. Patient has pulmonary emboli. COMPARISON: Right leg DVT study 12/17/2016 and left leg study dated 06/07/2015. TECHNIQUE: Color-flow triplex imaging with spectral analysis and compression Doppler were performed on the left lower extremity. FINDINGS: There is occlusive thrombus present in the left popliteal vein with nonocclusive thrombus present in the femoral vein above this up to its midportion. Thrombus is also present in the peroneal vein. It should be noted at the time of the patient's 2014 study mentioned above, noncompressible occlusive thrombus was present in the popliteal vein extending up into the femoral vein. Once again seen is a Rosales's cyst measuring 6.7 x 1.7 x 4.2 cm. IMPRESSION: Evidence of occlusive DVT in the popliteal vein. Similar appearances were present at the time of the prior study. The thrombus in the femoral vein is no longer occlusive. Given the appearances previously, it is difficult to ascertain whether these findings are chronic or acute as there are no studies which show resolution of the previously demonstrated 2015 findings. This critical result was discussed with Dr. Stephen Addison at 10:15 a.m. immediately after the exam and it was ascertained that the content and urgency of the report was understood at the time of direct communication.
--- NOTE | 2016-12-18 14:53 | PN- Att Addend ---
Attending MD Review Statement Attending Statement Attending MD Statement: examined this patient, discuss w/resident/PA/DIESEL ENGINE FITTER, agreed w/resident/PA/DIESEL ENGINE FITTER, reviewed EMR data (avail), discussed w/nursing, discussed w/ case mgmt Attending Assessment/Plan: Laboratory Tests 12/18/16 0915: APTT 55 H 12/18/16 0822: CBC w Diff NO MAN DIFF REQ, RBC 4.37 L, MCV 87.4, MCH 29.3, RDW 13.0, MPV 7.7, Gran % 59.9, Lymphocytes % 30.6, Monocytes % 5.1, Eosinophils % 3.7, Basophils % 0.7, Absolute Granulocytes 4.2, Absolute Lymphocytes 2.2, Absolute Monocytes 0.4 , Absolute Eosinophils 0.3, Absolute Basophils 0, PUBS MCHC 33.5 12/18/16 0600: Anion Gap 7, Estimated GFR > 60, BUN/Creatinine Ratio 16.7 12/18/16 0530: Urine Color STRAW, Urine Clarity CLEAR, Urine pH 6.5, Ur Specific [place] 1.010, Urine Protein NEG, Urine Ketones NEG, Urine Nitrite NEG, Urine Bilirubin NEG, Urine Urobilinogen 0.2, Ur Leukocyte Esterase NEG, Ur Microscopic EXAM NOT REQUIRED, Urine Hemoglobin NEG, Urine Glucose NEG 12/18/16 0200: APTT 47 H 12/18/16 0100: Troponin I < 0.01 12/17/16 1931: CBC w Diff Cancelled, WBC Cancelled, RBC Cancelled, Hgb Cancelled, Hct Cancelled , MCV Cancelled, MCH Cancelled, RDW Cancelled, Plt Count Cancelled, MPV Cancelled, PUBS MCHC Cancelled 12/17/16 1813: Troponin I < 0.01, PT 11.2, INR 1.07, APTT 34, CBC w Diff NO MAN DIFF REQ, RBC 4.46 L, MCV 87.6, MCH 28.6, RDW 13.6, MPV 7.6, Gran % 54.2, Lymphocytes % 33.8, Monocytes % 7.1, Eosinophils % 4.4, Basophils % 0.5, Absolute Granulocytes 4.1, Absolute Lymphocytes 2.5, Absolute Monocytes 0.5, Absolute Eosinophils 0.3, Absolute Basophils 0, PUBS MCHC 32.7 L Vital Signs Date Time Temp Pulse Resp B/P Pulse O2 O2 Flow FiO2 Ox Delivery Rate 12/18 1200 Room Air 12/18 0800 98.0 62 20 132/60 97 Room Air 12/18 0000 Room Air 12/17 2331 98.2 62 18 130/70 96 Room Air 12/17 1932 97.0 61 18 116/63 97 Room Air 12/17 1818 Room Air 12/17 1657 97.9 65 20 132/80 97 Patient seen and examined at bedside. Discussed with patient the care plan. 61-year-old male with past medical history of DVT in the left leg about 2 years ago in 2014 for which he was on warfarin for 6 months and then switched later on to aspirin. Patient had a bladder tumor which was nonmalignant and was resected in November 2015 and post that he has had cystoscopy which has been normal. Patient recently traveled to [facility] about a week ago. Patient admitted with the right lower extremity swelling and pain and found to have new DVT in the right lower extremity along with CTA of the chest showing a few occlusive PE in the right lower lobe and left lower lobe. I discussed the case with patient's vascular surgeon Dr. Davis and he is going to see the patient today and see if the patient would benefit from thrombolysis . If patient does not need any further intervention we will switch him to oral anticoagulation agents and plan for discharge.
--- NOTE | 2016-12-18 15:05 | Cons- Vascular Surgery ---
General Information and HPI Consulting Request Date of Consult: 12/18/16 Requested By: OMKAR WILDE,DOMENICO History of Present Illness: Patient is a 61-year-old gentleman well known to me who presented with right leg pain and swelling as well as shortness of breath. He has a history of left leg DVT which has been followed with me for over a year now. On follow-up ultrasound , the left lower extremity showed to be a chronic scarring of the femoral vein. Therefore anticoagulation was stopped and he was started on aspirin. Follow-up ultrasounds after being on aspirin did not show any evidence of propagation or acute DVT. About 3 weeks ago, the patient slipped on ice and stretch his right leg. He developed right groin pain which went away but got worse during his plain trip to [facility] last week. He also developed shortness of breath which has resolved. Ultrasound of the lower extremity showed an acute right femoral popliteal DVT. CAT scan has also showed multiple small pulmonary embolism. The patient has been on heparin drip. I was asked to evaluate the patient regarding possible role for thrombolyzes or IVC filter. Allergies/Medications Allergies: Coded Allergies: NO KNOWN ALLERGIES (07/26/11) Home Med List: Apixaban (Eliquis) 5 MG TABLET 10 MG PO SI clots 5mg 2tab x 7 days 12/18/2016 -12/24/2016 5mg 1tab continue and follow up with Dr harry for further decision. Aspirin (Ecotrin*) 81 MG TABLET. 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 Home Services at Home: None Smoking Status: Never Smoked ETOH Use: occasional use Illicit Drug Use: denies illicit drug use Functional Ability ADLs Independent: dressing, eating, toileting, bathing. Ambulation: independent Review of Systems Review of Systems: Patient denies headache, dizziness, cough, palpitation, diarrhea or constipation Exam & Diagnostic Data Vital Signs and I&O Vital Signs Date Time Temp Pulse Resp B/P Pulse O2 O2 Flow FiO2 Ox Delivery Rate 12/18 1200 Room Air 12/18 0800 98.0 62 20 132/60 97 Room Air 12/18 0000 Room Air 12/17 2331 98.2 62 18 130/70 96 Room Air 12/17 1932 97.0 61 18 116/63 97 Room Air 12/17 1818 Room Air 12/17 1657 97.9 65 20 132/80 97 Intake & Output 12/18 1600 12/18 0812/18 0000 12/17 1600 12/17 0812/17 0000 Intake Total 765.3 303.6 52 Output Total Balance 765.3 303.6 52 Intake, IV 285.3 253.6 52 Intake, Oral 480 50 Patient 313 lb Weight Physical Exam: Patient is alert and oriented 3 Lungs: Clear to auscultation bilaterally Cardiovascular: Regular rate and rhythm Abdomen: Soft, nontender and nondistended Extremities: Out swelling of bilateral lower extremity. There are palpable pedal pulses. All compartments are soft to touch. Bilateral feet and legs are warm to touch. There is no skin discoloration Assessment/Plan Assessment/Plan 61-year-old man with a history of left lower extremity DVT and bladder cancer now presents with an acute right lower extremity DVT. His bladder cancer is one of the risk factors for his DVT. His right groin injury and recent travel and immobility may represent underlying cause for new DVT. This may be classified as provoked DVT However, in my opinion given his history of DVT and risk factor, the patient should be on long-term anticoagulation if there are no contraindications. There is no role for IVC filter as the patient can be anticoagulated. There is also no role for thrombolyzes as the ultrasound shows involvement of femoral and popliteal vein. There is no involvement of common femoral vein. I will follow the patient after his discharge. Thank you for asking me to be involved in the care of this patient. Consult Acknowledgment - Thank you for your consult request. Attending MD Review Statement Attending Statement Attending Statement: examined this patient, discuss w/resident/PA/SLIVER CUTTER
--- NOTE | 2016-12-18 15:33 | Discharge Summary ---
Visit Information Visit Dates Admission Date: 12/17/16 Discharge Date: 12/18/2016 Hospital Course Course Attending Physician: Dr CHICHI COHEN MD Primary Care Physician: TAVARES WILDE,MADDI Guevara Hospital Course: Patient is a 61-year-old gentleman with PMH of HLD, left lower extremity DVT ( 2014), bladder tumor (1 year ago, s/p resection), osteoarthritis, left knee Rosales's cyst, umbilical hernia (5 years ago, S/P surgical repair), who came to the ED after having almost a week of right lower extremity pain and swelling. Vital signs at the time of admission -97.9, pulse 65, respiratory rate 20, blood pressure 132/80, SPO2 97% on room air Right lower leg DVT with bilateral PE - * On evaluation EKG shows no any new ST-T wave changes, serial troponins were negative.Venous Doppler study of right leg showed acute right femoral DVT and left leg showed occlusive left popliteal vein and nonocclusive thrombus at left femoral vein. CTA showed occlusive PE within right and left lower lobe segmental pulmonary arterial branches, and a nonocclusive PE within the right lower lobar pulmonary artery extending into several segmental arterial branches. There was no evidence of right heart strain. * Initially we started patient on heparin drip and took the consult from Dr. Mckinney and Dr. Kemp. advised further thrombophilia workup and CT abdomen and pelvis as an outpatient. Discussed with Dr. Kemp, he advised that the patient does not have any indication of IVC and thrombolysis, so he can be discharged on Eliquis. We stopped heparin and started him on tablet Eliquis 10 mg BID x 7 days, followed by 5 mg BID. We advised him to follow-up with Dr. Mckinney and Dr. Kemp, within a week of discharge for further management and evaluation of recurrent thrombosis. Lung nodule/incidental finding * On CTA there was 6.5 mm nodule within the lingula on image 39 of series 3 which was not there in previous CT studies. We advised to follow-up with her PCP and CT scan of the chest in the future. Hyperlipidemia - * We started patient on tablet atorvastatin 40mg OD HS Allergies: Coded Allergies: NO KNOWN ALLERGIES (07/26/11) Disposition Summary Disposition Principal Diagnosis: DVT of right lower leg occlusive pulmonary emboli within right and left lower lobe segmental pulmonary arterial branches Additional Diagnosis: left Rosales's cyst measuring 6.7 x 1.7 x 4.2 cm. 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 Dey a week of discharge Please follow-up with Dr. Mckinney within a week of discharge Please take the Eliquis as advised. Please watch for the bleeding Medications at Discharge Discharge Medications: Stop taking the following medications: Aspirin (Ecotrin*) 81 MG TABLET.DR HERRING DAILY Start taking the following new medications: Apixaban (Eliquis) 5 MG TABLET 1 Tablet ORAL TWICE DAILY Qty = 90 No Refills Instructions: Please take 2 tablets, in the am and in the evening for 1 week (12/18/2016 -12/24/2016) then take 1 tab in the AM & 1 tab in the evening until you see Dr. Negron. Comments: Last Taken: 12/18 Time: 430P Oxycodone HCl/Acetaminophen (Percocet 5-325 MG Tablet) 5 MG-325 MG TABLET 2 Tablet ORAL EVERY SIX HOURS NEEDED as needed for PAIN SCALE 7-10 ( SEVERE) Qty = 30 No Refills Comments: NOT GIVEN IN HOSPITAL Atorvastatin Calcium (Atorvastatin Calcium) 40 MG TABLET 1 Tablet ORAL DAILY Qty = 30 No Refills Comments: NOT GIVEN IN HOSPITAL Copies To: TAVARES WILDE,MADDI Guevara; CAROLE WILDE,VALERIE Landrum; SITA WILDE,DIANE Attending MD Review Statement Documenting Attending: NOEL WILDE,CHICHI Carrillo Other Findings: Please see my attending note for more details. Agree with the above discharge plan.
[2016-12-18 16:01] VITALS: BP 142/86
--- NOTE | 2016-12-18 16:35 | ECHOCARDIOGRAM REPORT ---
NILO ADAMS Age: 61 : 1955 Gender: M Exam Date: 12/18/2016 10:54 Exam Location: [address] Ht (in): 71 Wt (lb): 313 BSA: 2.73 BP: 130 / 70 Ordering Physician: Lanre Shipley MD Referring Physician: LANRE SHIPLEY MD Technologist: Daniella Sullivan Room Number: 171 Indications: ACUTE PULMONARY EMBOLISM Rhythm: Sinus Technical Quality: Technically difficult study FINDINGS Left Ventricle Normal size left ventricle. Mild concentric left ventricular hypertrophy. Left ventricular ejection fraction is estimated at >60%. No obvious regional wall motion abnormalities. Normal left ventricular diastolic filling pattern for age. Right Ventricle Normal right ventricular size and function. Right Atrium Mild right atrial dilatation. Left Atrium Mild left atrial dilatation. Mitral Valve Mild mitral annular calcification. Trace mitral regurgitation. Aortic Valve Aortic valve mildly thickened. No aortic stenosis. No aortic regurgitation. Tricuspid Valve Tricuspid valve not well visualized, grossly normal. Trace tricuspid regurgitation. No evidence of pulmonary hypertension. Pulmonic Valve Pulmonic valve not well visualized, grossly normal. Pericardium No pericardial effusion. Great Vessels Mild aortic root dilation. CONCLUSIONS Normal size left ventricle. Mild concentric left ventricular hypertrophy. Left ventricular ejection fraction is estimated at >60%. No obvious regional wall motion abnormalities. Normal left ventricular diastolic filling pattern for age. Mild right atrial dilatation. Mild left atrial dilatation. Trace mitral regurgitation. Trace tricuspid regurgitation. Nilo Jimenez M.D. (Electronically Signed) Final Date: 18 December 2016 16:34 MEASUREMENTS (Male / Female) Normal Values 2D ECHO LV Diastolic Diameter PLAX 4.7 cm 4.2 - 5.9 / 3.9 - 5.3 cm LV Systolic Diameter PLAX 3.0 cm 2.1 - 4.0 cm LV Fractional Shortening PLAX 36.2 % 25 - 46 % LV Ejection Fraction 2D Teich 65.8 % IVS Diastolic Thickness 1.3 cm LVPW Diastolic Thickness 1.4 cm LV Relative Wall Thickness 0.6 RV Internal Dim ED PLAX 4.1 cm 1.9 - 3.8 cm LVOT Diameter 2.7 cm Aortic Root Diameter 3.9 cm LA Systolic Diameter LX 4.3 cm 3.0 - 4.0 / 2.7 - 3.8 cm LA Volume 89.0 cm 18 - 58 / 22 - 52 cm Ascending Aorta Diameter 3.9 cm DOPPLER AV Peak Velocity 125.0 cm/s AV Peak Gradient 6.3 mmHg AV Mean Velocity 90.5 cm/s AV Mean Gradient 4.0 mmHg AV Velocity Time Integral 29.3 cm LVOT Peak Velocity 137.0 cm/s LVOT Peak Gradient 7.5 mmHg LVOT Mean Velocity 83.9 cm/s LVOT Mean Gradient 3.0 mmHg LVOT Velocity Time Integral 26.9 cm LVOT Stroke Volume 154.0 cm AV Area Cont Eq vti 5.3 cm AV Area Cont Eq pk 6.3 cm MV Peak Velocity 109.0 cm/s MV Peak Gradient 4.8 mmHg MV Mean Velocity 42.3 cm/s MV Mean Gradient 1.0 mmHg Mitral E Point Velocity 70.6 cm/s Mitral A Point Velocity 55.9 cm/s Mitral E to A Ratio 1.3 MV PHT Velocity 112.0 cm/s MV Deceleration [place] 634.0 cm/s MV Pressure Half Time 53.0 ms MV Area PHT 4.2 cm MV Deceleration Time 289.0 ms TR Peak Velocity 178.0 cm/s TR Peak Gradient 12.7 mmHg Right Atrial Pressure 5.0 mmHg Pulmonary Artery Systolic Pressu 17.7 mmHg Right Ventricular Systolic Press 17.7 mmHg PV Peak Velocity 125.0 cm/s PV Peak Gradient 6.3 mmHg PV Mean Velocity 88.9 cm/s PV Mean Gradient 4.0 mmHg PV Velocity Time Integral 28.7 cm LV E' Lateral Velocity 10.5 cm/s Mitral E to LV E' Lateral Ratio 6.7 LV E' Septal Velocity 7.8 cm/s Mitral E to LV E' Septal Ratio 9.1
== END 2016-12-18 17:59 | DRG 299 ==
LOC: ENRESERVTM → ENRESERVDT → ERH 16:38 → ERHI 19:30 → 1NO 19:30 → ENPENDDIS 19:30 → 1NO 19:30
PROVIDERS: Internal Medicine Hematology & Oncology; Physician Assistant; ADMIT Student in an Organized Health Care Education/Training Program
DX: I82.4Z1 Acute embolism and thrombosis of unspecified deep veins of right distal lower extremity (principal); I26.99 Other pulmonary embolism without acute cor pulmonale; Z68.41 Body mass index [BMI] 40.0-44.9, adult; E66.01 Morbid (severe) obesity due to excess calories; R91.1 Solitary pulmonary nodule; E78.5 Hyperlipidemia, unspecified; M19.90 Unspecified osteoarthritis, unspecified site; Z85.51 Personal history of malignant neoplasm of bladder; F17.290 Nicotine dependence, other tobacco product, uncomplicated
CPT/HCPCS: 1NP; 36415; 81003; 82436; 93005; 93010; 93306; 96374; 99291; J1644